=== PATIENT | female | born 1925 | race Caucasian/White ===

== ENCOUNTER → 2016-03-05 | Outpatient (REF) | payer MEDICARE ==
[~2016-03-05] MED LIST: ALVI12CA PO; BISO5TAB5 PO; COLA100C PO; DIGI1TAB PO; FERR325T PO; FURO40TA2 PO; GLUCTAB6 PO; LISI-542 PO; MAPA325T2 PO; METF500T PO; NORCOTAB PO; NYST10PW TOP; PANT40TA2 PO; POTA10CA PO; VITMTA PO; WARF-23 PO
[2016-03-05 20:08] LABS: ALBUMIN 3.4 GM/DL (3.2-5.2); ALBUMIN/GLOBULIN RATIO 1.1 (1.00-1.93); BILIRUBIN,TOTAL 1.2 MG/DL (0.2-1.0); CALCIUM LEVEL 8.5 MG/DL (8.8-10.2); CREATININE FOR GFR 2.1 MG/DL (0.55-1.02); DIGOXIN LEVEL 1.9 NG/ML (0.5-2.0); GLOMERULAR FILTRATION RATE 23.6 (>32); MAGNESIUM LEVEL 1.9 MG/DL (1.8-2.4); POTASSIUM SERUM 5.1 MEQ/L (3.5-5.1); TOTAL PROTEIN 6.5 GM/DL (6.4-8.2)
== END ==
LOC: M SFHCADAM 14:30
PROVIDERS: ATTEND Physician Assistant
DX: E86.0 Dehydration (principal); I48.91 Unspecified atrial fibrillation

== ENCOUNTER 2016-03-10 08:58 | Inpatient (IN) | payer MEDICARE ==
[~2016-03-10] VITALS: Ht 152.4 cm; Wt 72.8 kg
[2016-03-10] MEDS ORDERED: FERROUS SULFATE 325MG TAB PO SCH (09:00)
[2016-03-10 11:15] VITALS: BP 131/60
[2016-03-10 11:59] LABS: INR 4.13
[2016-03-10 12:22] LABS: ALBUMIN 3.5 GM/DL (3.2-5.2); ALBUMIN/GLOBULIN RATIO 1.03 (1.00-1.93); CALCIUM LEVEL 8.4 MG/DL (8.8-10.2); CREATININE FOR GFR 1.84 MG/DL (0.55-1.02); GLOMERULAR FILTRATION RATE 27.5 (>32); MAGNESIUM LEVEL 2.2 MG/DL (1.8-2.4); TOTAL PROTEIN 6.9 GM/DL (6.4-8.2)
[2016-03-10 12:24] LABS: POTASSIUM SERUM 5.2 MEQ/L (3.5-5.1)
[2016-03-10 12:25] LABS: MEAN CORPUSCULAR HEMOGLOBIN 31.5 pg (27.0-33.0); MEAN CORPUSCULAR HGB CONC 31.3 g/dl (32.0-36.5); MEAN CORPUSCULAR VOLUME 100.6 fl (80.0-96.0); RED CELL DISTRIBUTION WIDTH 14.4 % (11.5-14.5); WHITE BLOOD COUNT 6.2 K/mm3 (4.0-10.0)
[2016-03-10 12:30] LABS: DIGOXIN LEVEL 1.8 NG/ML (0.5-2.0)
[2016-03-10] MEDS ORDERED: WARF-60 PO (12:37)
[2016-03-10] MEDS ORDERED: FURO40TA2 PO (12:37)
[2016-03-10] MEDS ORDERED: WARF-20 PO (12:37)
[2016-03-10] MEDS ORDERED: DIGO0.12 PO (12:37)
[2016-03-10] MEDS ORDERED: ACET-654 PO (12:37)
[2016-03-10] MEDS ORDERED: VITMTA PO (12:38)
--- NOTE | 2016-03-10 14:31 | IPNPDOC ---
Assessment/Plan Date Seen The patient was seen on 03/10/16. Patient Summary Patient admitted directly from the [facility] for shortness of breath with exertion, AK I, and concern for heart failure Problems Problems: (1) A-fib Status: Chronic Problem Text: Patient is currently treated with digoxin and bisoprolol. She is possibly overly late rate controlled at this point, as her pulse is below 60. This may be part of her problem. Digoxin level drawn 3 days ago was 1.9. -Hold beta jerod -Continue digoxin -Awaiting cardiology recommendations (2) Acute kidney failure Status: Chronic Problem Specific Plan: Repeat Labs Problem Text: Baseline creatinine is 1.2. Stage IIIB CK D. Creatinine is currently 1.84. Appears to be prerenal given recent nausea, vomiting, diarrhea. BNP is 2000, however patient does not appear to be volume overloaded on exam, and has no rales on lung exam. Patient has minimal urine output, and has not urinated all day. -Urine sodium, urine creatinine (3) Anemia Status: Chronic Problem Text: Chronic iron deficiency anemia, likely contributing to acute heart failure. - Consider iron infusion, ferrous sucrate 500 mg - Consider PRBC, as her anemia may be contributing to heart failure (4) Diastolic CHF Status: Chronic Response to Treatment: Worse Problem Specific Plan: Consult Specialist Problem Text: Echocardiogram done by Dr. Maldonado 08/09/2015 showed normal left ventricular systolic function, severe biatrial enlargement, aortic sclerosis without stenosis and mild insufficiency, high CVP, and moderate pulmonary hypertension. This was done during admission for sepsis and acute congestive heart failure. Her current labs show BNP of approximately 2000, although this is not consistent with her overall exam. Patient does not appear to be volume overloaded on exam, and does not have appreciable jugular venous distention. Given that the patient is stable currently, I'm not inclined to start any Lasix. I will wait recommendations by Dr. Ewing. -Follow-up echo -Awaiting cardiology recommendations -Stop beta jerod -Consider iron infusion (5) HTN (hypertension) Status: Acute Problem Text: Blood pressures currently in the 130s. Holding beta jerod (6) Valvular heart disease Status: Acute (7) Pulmonary HTN Status: Acute Problem Text: Secondary to valvular heart disease (8) DM2 (diabetes mellitus, type 2) Status: Chronic Problem Text: Last A1c 8.4. Not currently on medications. -Sliding scale insulin (9) CKD (chronic kidney disease), stage III Status: Chronic Problem Text: Baseline stage IIIb CKD, with creatinine 1.2 Plan / VTE VTE Prophylaxis Ordered?: Yes (INR currently supratherapeutic, holding coumadin ) Subjective Review of Systems CC/HPI The patient is a 89-year-old female admitted with a reason for visit of Acute Renal Failure, Congestive Heart Failure. Events since last encounter Called to evaluate patient, who was strictly admitted from clinic. Patient reports that her symptoms have worsened over the past week. She had some nausea , vomiting, and diarrhea, which has now resolved. However, she continues to have significant dyspnea on exertion. She denies any new cough, fever, chills, sweats, or worsening lower extremity edema. Her only medication changes have been holding of her home Lasix. She reports normal urine output, and normal urine color. She denies any chest pain, chest pressure, racing heart, or palpitations. She denies any dark stools, or melenic stool. Constitutional: Reports: Fatigue, Denies: Chills, Fever, Malaise Skin: Denies: Lesions, Rash Pulmonary: Reports: Dyspnea, Denies: Cough, Pleuritic Chest Pain Cardiovascular: Denies: Chest Pain, Orthopnea, Palpitations Gastrointestinal: Denies: Abdominal Pain, Constipation, Diarrhea, Nausea, Vomiting Genitourinary: Denies: Dysuria Hematologic: Denies: Bleeding Excessively, Bruising Neurological: Denies: Change in speech, Confusion, Numbness, Weakness Psych: Reports: Mood Normal Other systems 10 point review systems is otherwise negative Objective Vital Signs/I&O Vital Signs Date Time Temp Pulse Resp B/P Pulse Ox O2 Delivery O2 Flow Rate FiO2 03/10/16 12:00 Room Air 03/10/16 11:15 97.8 58 18 131/60 99 Laboratory Data Labs 24H Laboratory Tests 2 03/10/16 11:31: Blood Urea Nitrogen 51H, Creatinine 1.84H, Sodium Level 139, Potassium Level 5.2H, Chloride Level 106, Carbon Dioxide Level 23, Calcium Level 8.4L, Aspartate Amino Transf (AST/SGOT) 51H, Alanine Aminotransferase (ALT/SGPT) 36, Total Creatine Kinase 43, Alkaline Phosphatase 98, Total Bilirubin 1.0, Total Protein 6.9, Albumin 3.5, Albumin/Globulin Ratio 1.03, Anion Gap 10, Creatine Kinase MB 2.9, Creatine Kinase MB Relative Index 6.74H, Digoxin Level 1.8, Glomerular Filtration Rate 27.5L, Magnesium Level 2.2, Prothromb Time International Ratio 4.13, Prothrombin Time 39.9H, Troponin I 0.03 03/10/16 11:55: B-Type Natriuretic Peptide 2060H CBC/BMP Laboratory Tests 03/10/16 11:31 Calcium Level 8.4 L, Aspartate Amino Transf (AST/SGOT) 51 H, Alanine Aminotransferase (ALT/SGPT) 36, Total Creatine Kinase 43, Alkaline Phosphatase 98, Total Bilirubin 1.0, Total Protein 6.9, Albumin 3.5, Red Blood Count 3.39 L , Mean Corpuscular Volume 100.6 H, Mean Corpuscular Hemoglobin 31.5, Mean Corpuscular Hemoglobin Concent 31.3 L, Red Cell Distribution Width 14.4 Microbiology Microbiology 03/10/16 MRSA Screen, Received Pending TRACEY MCPHERSON MD Mar 10, 2016 14:31
[2016-03-10] MEDS ORDERED: SLF 3 ML SYR IV PRN (15:00)
--- NOTE | 2016-03-10 15:09 | REP ---
CHEST X-RAY: Two views. HISTORY: Dyspnea on exertion. COMPARISON: Chest x-ray September 08, 2015. FINDINGS: Moderate to marked cardiomegaly is again observed unchanged. There is slight blunting of the posterior pleural angles bilaterally. Some fissural thickening is seen. Pulmonary vasculature is cephalized. There are one or two Ramesh B lines in the bases. The aorta is calcific and tortuous. No infiltrate is seen. IMPRESSION: CHF pattern as above. Signed by Malcolm Thomason MD 03/10/2016 08:13 P
[2016-03-10 16:00] VITALS: BP 109/59
[2016-03-10 18:34] LABS: CREATININE FOR GFR 1.78 MG/DL (0.55-1.02); GLOMERULAR FILTRATION RATE 28.6 (>32)
[2016-03-10 20:00] VITALS: BP 125/58
[2016-03-10] MEDS ORDERED: PHYTONADIONE 2.5 MG **1/2 TAB PO ONE (20:30)
[2016-03-10] MEDS: BISOPROLOL FUM 2.5 MG PER 1/2TAB PO SCH (20:42)
[2016-03-10] MEDS: DOCUSATE SODIUM 100 MG CAP PO SCH (20:55)
[2016-03-10] MEDS: SLF 3 ML SYR IV SCH (20:56)
[2016-03-10] MEDS ORDERED: DIGOXIN 0.125 MG TAB PO SCH (21:00)
[2016-03-10] MEDS: ACETAMINOPHEN 325 MG TAB PO PRN (22:18)
[2016-03-11] VITALS (13 sets, daily range): BP systolic 103–128; BP diastolic 54–81
[2016-03-11 05:06] LABS: BASO % 0.7 % (0.0-1.0); EOS # 0.1 K/mm3 (0.0-0.50); EOS % 2.4 % (0.0-3.0); LARGE UNSTAINED CELL # 0.1 K/mm3 (0.0-0.4); LARGE UNSTAINED CELL % 2.3 % (0.0-4.0); LYMPH # 0.9 K/mm3 (1.5-4.5); LYMPH % 15.2 % (24.0-44.0); MEAN CORPUSCULAR HEMOGLOBIN 32.2 pg (27.0-33.0); MEAN CORPUSCULAR HGB CONC 32.8 g/dl (32.0-36.5); MEAN CORPUSCULAR VOLUME 98.2 fl (80.0-96.0); MONO # 0.4 K/mm3 (0.0-0.8); MONO % 7.4 % (0.0-5.0); NEUTROPHILS # 4.1 K/mm3 (1.8-7.7); NEUTROPHILS % 72.1 % (36.0-66.0); PLATELET COUNT, AUTOMATED 209 k/mm3 (150-450); RED CELL DISTRIBUTION WIDTH 13.8 % (11.5-14.5); WHITE BLOOD COUNT 5.7 K/mm3 (4.0-10.0)
[2016-03-11 05:28] LABS: INR 3.61
[2016-03-11 05:38] LABS: CALCIUM LEVEL 8.6 MG/DL (8.8-10.2); CREATININE FOR GFR 1.89 MG/DL (0.55-1.02); GLOMERULAR FILTRATION RATE 26.7 (>32); POTASSIUM SERUM 4.7 MEQ/L (3.5-5.1)
[2016-03-11 05:48] LABS: DIGOXIN LEVEL 1.6 NG/ML (0.5-2.0)
[2016-03-11] MEDS: SLF 3 ML SYR IV SCH ×3 (06:00→22:49)
[2016-03-11] MEDS ORDERED: ceFAZolin SOD 1 GM in D5W MINI-BAG PLUS 50 ML IV SCH (06:00)
[2016-03-11] MEDS ORDERED: FUROSEMIDE 40 MG/4 ML VIAL (J1940) IV SCH (08:00)
[2016-03-11] MEDS ORDERED: PHYTONADIONE 10MG/ML INJECTION (J3430) IV ONE (08:15)
[2016-03-11] MEDS ORDERED: FUROSEMIDE 40 MG/4 ML VIAL (J1940) IV ONE (08:15)
--- NOTE | 2016-03-11 08:26 | CR ---
DATE OF CONSULTATION: 03/10/2016 REFERRING PROVIDER: Meri Reyes PA-C/Dr. Nick Boo REASON FOR CONSULTATION: Shortness of breath. HISTORY OF PRESENT ILLNESS: 89-year-old woman well known by the office and she has been doing fairly well until most recently when she started having generalized weakness associated with nausea, vomiting and diarrhea. She was seen by her primary on 03/05/2015 and at that time her serum creatinine was reported to be 2.1 with a BUN of 50 and a serum potassium of 5.1. Her furosemide was stopped. She was seen early this morning by her primary at the [facility] and she was complaining of weakness and shortness of breath, but no chest pain. She was admitted directly for further management and monitoring, and a cardiology consult was called. Serum digoxin on 03/05/2016 was 1.9. When I saw Mrs. Alesha Haque in the unit, she was lying supine in bed in no acute distress at rest. She complains of shortness of breath and rapid heart rate with minimal exertion, but denies any chest pain. She denies any active bleeding. She has no pedal edema and she denies any orthopnea or paroxysmal nocturnal dyspnea (PND). She denies any cough. She is no longer having diarrhea. There is no focal manifestation. There is no acute swelling or redness of the joints. She has minimal pedal edema and this has been chronic. While in the unit, her telemetry revealed marked bradycardia with a heart rate at times about 40 beats per minute. This morning, she had an EKG prior to her admission that revealed atrial fibrillation at 59 beats per minute and left ventricular conduction delay as well as STT abnormalities noted in the inferior leads as well as the anterolateral leads. She has a past medical history positive for atrial fibrillation that has been chronic and persistent and for which she has been on Coumadin and she is being monitored by her primary, hypertension, hyperlipidemia, diabetes mellitus, deep vein thrombosis (DVT) after right knee surgery, valvular heart disease involving the aortic valve as well as the mitral valve, moderately severe pulmonary hypertension, but normal left ventricular ejection fraction (LVEF). There is no history of cerebrovascular accident (CVA), obstructive coronary artery disease, myocardial infarction, cardiomyopathy, sudden cardiac . She also has a history of anemia. Past surgical history is positive for breast surgery, left lumpectomy in 1997 for breast cancer and she was treated also with radiotherapy. She also has a history of total hysterectomy, bilateral cataract extraction, right knee replacement, and last August she had a polypectomy done at [facility]. History of transverse colectomy for adenocarcinoma of the colon, nonmetastatic in August 2015. MEDICATIONS PRIOR TO COMING TO HOSPITAL: - bisoprolol 2.5 mg by mouth daily - digoxin 0.125 mg daily - Coumadin as directed - Lasix 40 mg by mouth daily - pantoprazole 40 mg by mouth daily - KCL 10 mEq by mouth daily - docusate sodium 100 mg tablets one to two tablets as needed for constipation - iron supplement 325 mg by mouth daily CURRENT MEDICATIONS: - pantoprazole 40 mg by mouth daily - ferrous sulfate 325 mg by mouth daily - docusate sodium 100 mg by mouth twice a day - bisoprolol fumarate 2.5 mg by mouth twice a day - digoxin 0.125 mg by mouth daily - Tylenol 650 mg every 4 hours as needed for pain or fever FAMILY HISTORY: Noncontributory. SOCIAL HISTORY: Patient lives in the [facility]. There is no report of smoking or EtOH abuse. ALLERGIES: She has no known drug allergies. ADVANCE DIRECTIVE: Unclear at this present time. PHYSICAL EXAMINATION: Patient is alert and oriented, in no acute distress at rest and very pleasant. Her last vital signs today reveal a blood pressure of 125/58 with a pulse of 51, respirations 18, and her maximum temperature is 97.8 degrees Fahrenheit with an oxygen saturation of 98% on room air. HEAD/EARS/EYES/NOSE/THROAT: Atraumatic. NECK: Supple with minimally extended jugular. LUNGS: Reveal minimal crackles at the bases. No wheezing. HEART: Examination reveals irregularly, irregular heart sounds without gallops. The PMI is not displaced. There is no rub. There is a systolic murmur grade 1-2/6 at the lower left sternal border and at the apex with some minimal radiation to the axilla. ABDOMEN: Unremarkable. EXTREMITIES: Reveal trace ankle edema. NEUROLOGICAL: Examination grossly is negative for focal deficits. LABORATORIES: CBC revealed a WBC of 6.2, hemoglobin 10.7, hematocrit 34.1, and platelets 215,000. BMP revealed a sodium of 139, potassium 5.2, chloride 106, CO2 23, BUN 51, creatinine 1.84, GFR 27.5, fasting glucose 157, calcium 8.4. Her magnesium is 2.1. Liver enzymes revealed a total bilirubin of 1.0, AST 51, ALT 36, alkaline phosphatase is 98, total bilirubin 6.9, albumin 3.6. Serum BNP was 2060. Serum Troponin I was 0.03 times two. Serum digoxin is 1.8. PT was 39.9 with an INR of 4.13. Chest x-ray revealed a tortuous aorta, mild cardiomegaly and increased vascular markings. EKG done prior to coming to the hospital revealed atrial fibrillation at 69 beats per minute and STT abnormalities noted in the inferior leads as well as the anterolateral leads and right ventricular conduction delay. Telemetry was reviewed and revealed heart rate as low as 40 beats per minute intermittently. IMPRESSION: 1. Probably sick sinus syndrome in this 89-year-old woman with complaint of palpitations with activities and while in the hospital at rest, her heart rate drops as well as about 40 beats per minute at times. She is asymptomatic at rest. She will need the AV blocking agents and for this reason, she will require a permanent pacemaker implantation and this was discussed with Dr. Lynn who will see her tomorrow. In the meantime, she was given a small dose of vitamin K and will repeat the INR in the morning, 03/11/2016. The digoxin was discontinued. She has parameters for the beta-blockers as well as bisoprolol and will continue the same. INR as mentioned above is supratherapeutic and the Coumadin is on hold. This was discussed with the patient and she has agreed to proceed if needed. I will discuss in the morning with her primary and admitting provider. 2. Congestive heart failure (CHF), mild, and probably related to left ventricular diastolic dysfunction. Last year she had an echocardiogram that revealed a normal global left ventricular systolic function as well as in 2014, but with moderate valvular heart disease. She will be monitored. This will most likely improve once her heart rate is under control after her pacemaker implantation. We will be able to readjust her medications. 3. Abnormal EKG. This seems to be new when compared to the last EKG done in the office in 2013, but her serum Troponin is negative. She will be monitored. In 2012 she had a nuclear stress test and it was negative for ischemia or infarction. 4. History of hypertension, under control with current medication, on bisoprolol. 5. History of hyperlipidemia, on diet. 6. Diabetes mellitus, also on diet. 7. Chronic kidney disease. She is being monitored. Her serum creatinine last year was about 1.2. 8. Acute kidney injury. She will be monitored off the furosemide. 9. She has mild hyperkalemia and she is no longer on the potassium supplement. It was a pleasure to participate in the care of Mrs. Alesha Haque for her underlying cardiac condition. I will continue to monitor her along with you while in the hospital. At the present time, she appears to be stable. Tomorrow, Dr. Maldonado will be seeing her. Please do not hesitate to call if you have any questions.
--- NOTE | 2016-03-11 08:45 | ECGEPIP ---
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
[2016-03-11] MEDS: DOCUSATE SODIUM 100 MG CAP PO SCH ×2 (09:00→21:49)
[2016-03-11] MEDS: FERROUS SULFATE 325MG TAB PO SCH (09:00)
[2016-03-11] MEDS: BISOPROLOL FUM 2.5 MG PER 1/2TAB PO SCH ×2 (09:00→21:49)
[2016-03-11] MEDS: PANTOPRAZOLE 40MG TAB (PROTONIX) PO SCH (09:00)
--- NOTE | 2016-03-11 10:26 | IPNPDOC ---
[facility] Cardiology Progress Note Date of Service/Time The patient was seen on 03/11/16 at 10:19. Cardiology Progress Note SUBJECTIVE: Ms Haque was seen and examined at bedside, patient seemed comfortable was sitting upright in bed with her legs off to the side, she seems to be doing well and was in no apparent distress. OBJECTIVE: PHYSICAL EXAMINATION: VITAL SIGNS: Please see below. GENERAL APPEARANCE: Well-appearing female, conversant, pleasant and in no distress. HEENT: NCAT, EOMI, moist mucous membranes, nares patent bilaterally LUNGS: Good air expansion bilaterally, somewhat diminished breath sounds throughout, otherwise no rales, rhonchi or wheeze appreciated HEART: Normal S1, S2 no murmurs, rubs or gallops appreciated, rate was in the 80s ABDOMEN: Soft, nondistended, nontender SKIN: Intact EXTREMITIES: No clubbing, cyanosis or edema appreciated NEUROLOGICAL: No focal deficits PSYCHIATRIC: Affect is appropriate LABORATORY WORK: Please see below. ASSESSMENT AND PLAN: Ms. Haque seemed to be doing reasonably well this morning, she is scheduled for pacemaker implantation today. Her heart rate has been stable in the 60s to 70s with blood pressure 110 to 220 systolic over 60 diastolic. We will hold off on further medicine adjustment changes unless her clinical condition should change prior to pacemaker insertion. No further recommendations at this time. Vital Signs/I&O VS/I&O Vital Signs Date Time Temp Pulse Resp B/P Pulse Ox O2 Delivery O2 Flow Rate FiO2 03/11/16 10:09 97.0 65 18 112/57 96 03/11/16 08:00 Room Air I&O- Last 24 Hours up to 6 AM 03/11/16 06:00 Intake Total 560 ml Output Total 800 ml Balance -240 ml Laboratory Data 24H LABS Laboratory Tests 2 03/10/16 11:31: Blood Urea Nitrogen 51H, Creatinine 1.84H, Sodium Level 139, Potassium Level 5.2H, Chloride Level 106, Carbon Dioxide Level 23, Calcium Level 8.4L, Aspartate Amino Transf (AST/SGOT) 51H, Alanine Aminotransferase (ALT/SGPT) 36, Total Creatine Kinase 43, Alkaline Phosphatase 98, Total Bilirubin 1.0, Total Protein 6.9, Albumin 3.5, Albumin/Globulin Ratio 1.03, Anion Gap 10, Creatine Kinase MB 2.9, Creatine Kinase MB Relative Index 6.74H, Digoxin Level 1.8, Glomerular Filtration Rate 27.5L, Magnesium Level 2.2, Prothromb Time International Ratio 4.13, Prothrombin Time 39.9H, Troponin I 0.03 03/10/16 11:55: B-Type Natriuretic Peptide 2060H 03/10/16 17:19: Glomerular Filtration Rate 28.6L, Troponin I 0.03 03/10/16 19:44: Urine Random Creatinine 96.6, Urine Random Sodium 22 03/10/16 23:32: Troponin I 0.05# 03/11/16 04:57: Troponin I 0.04, Anion Gap 8, White Blood Count 5.7, Red Blood Count 3.39L, Hemoglobin 10.9L, Hematocrit 33.3L, Mean Corpuscular Volume 98.2H, Mean Corpuscular Hemoglobin 32.2, Mean Corpuscular Hemoglobin Concent 32.8, Red Cell Distribution Width 13.8, Platelet Count 209, Neutrophils (%) (Auto) 72.1H, Lymphocytes (%) (Auto) 15.2L, Monocytes (%) (Auto) 7.4H, Eosinophils (%) (Auto) 2.4, Basophils (%) (Auto) 0.7, Neutrophils # (Auto) 4.1, Lymphocytes # (Auto) 0.9L, Monocytes # (Auto) 0.4, Eosinophils # (Auto) 0.1, Basophils # (Auto) 0.0, Blood Urea Nitrogen 52H, Creatinine 1.89H, Sodium Level 140, Potassium Level 4.7 , Chloride Level 108H, Carbon Dioxide Level 24, Calcium Level 8.6L, Digoxin Level 1.6, Glomerular Filtration Rate 26.7L, Large Unclassified Cells # 0.1, Large Unclassified Cells % 2.3, Prothromb Time International Ratio 3.61, Prothrombin Time 36.0H CBC/BMP Laboratory Tests 03/10/16 11:31 Calcium Level 8.4 L, Aspartate Amino Transf (AST/SGOT) 51 H, Alanine Aminotransferase (ALT/SGPT) 36, Total Creatine Kinase 43, Alkaline Phosphatase 98, Total Bilirubin 1.0, Total Protein 6.9, Albumin 3.5, Red Blood Count 3.39 L , Mean Corpuscular Volume 100.6 H, Mean Corpuscular Hemoglobin 31.5, Mean Corpuscular Hemoglobin Concent 31.3 L, Red Cell Distribution Width 14.4 1/18/17 17:19 03/11/16 04:57 Calcium Level 8.6 L, Red Blood Count 3.39 L, Mean Corpuscular Volume 98.2 H, Mean Corpuscular Hemoglobin 32.2, Mean Corpuscular Hemoglobin Concent 32.8, Red Cell Distribution Width 13.8, Neutrophils (%) (Auto) 72.1 H, Lymphocytes (%) ( Auto) 15.2 L, Monocytes (%) (Auto) 7.4 H, Eosinophils (%) (Auto) 2.4, Basophils (%) (Auto) 0.7, Neutrophils # (Auto) 4.1, Lymphocytes # (Auto) 0.9 L, Monocytes # (Auto) 0.4, Eosinophils # (Auto) 0.1, Basophils # (Auto) 0.0 Microbiology Microbiology 03/10/16 MRSA Screen, Received Pending GME ATTESTATION GME ATTESTATION My preceptor for this patient encounter was physically present in the building during the encounter and was fully available. As needed, all aspects of the patient interview, examination, medical decision making process, and medical care plan development were reviewed and approved by the preceptor. Preceptor is aware and concurs with the plan as stated in the body of this note and will attest to such by his/her cosignature. JASPREET LINDER DO Mar 11, 2016 10:26 Princess Maldonado MD Mar 13, 2016 11:12
--- NOTE | 2016-03-11 11:14 | IPNPDOC ---
Assessment/Plan Date Seen The patient was seen on 03/11/16. Problems Problems: (1) A-fib Status: Chronic Problem Text: Patient is currently treated with digoxin and bisoprolol. She is possibly overly late rate controlled at this point, as her pulse is below 60. This may be part of her problem. Digoxin level drawn 3 days ago was 1.9. -Hold beta jerod -Continue digoxin -Awaiting cardiology recommendations (2) Acute kidney failure Status: Acute Problem Specific Plan: Repeat Labs Problem Text: Baseline creatinine is 1.2. Stage IIIB CK D. Creatinine is currently 1.84. Appears to be prerenal given recent nausea, vomiting, diarrhea. BNP is 2000, however patient does not appear to be volume overloaded on exam, and has no rales on lung exam. Patient has minimal urine output, and has not urinated all day. -Urine sodium, urine creatinine (3) Anemia Status: Chronic Problem Text: Chronic iron deficiency anemia, likely contributing to acute heart failure. - Consider iron infusion, ferrous sucrate 500 mg - Consider PRBC, as her anemia may be contributing to heart failure (4) Diastolic CHF Status: Chronic Response to Treatment: Improving Problem Specific Plan: Consult Specialist Problem Text: Echocardiogram done by Dr. Maldonado 08/09/2015 showed normal left ventricular systolic function, severe biatrial enlargement, aortic sclerosis without stenosis and mild insufficiency, high CVP, and moderate pulmonary hypertension. This was done during admission for sepsis and acute congestive heart failure. Her current labs show BNP of approximately 2000, although this is not consistent with her overall exam. Patient does not appear to be volume overloaded on exam, and does not have appreciable jugular venous distention. Given that the patient is stable currently, I'm not inclined to start any Lasix. I will wait recommendations by Dr. Ewing. -Follow-up echo -Awaiting cardiology recommendations -Stop beta jerod -Consider iron infusion (5) HTN (hypertension) Status: Acute Problem Text: Blood pressures currently in the 130s. Holding beta jerod (6) Valvular heart disease Status: Acute (7) Pulmonary HTN Status: Acute Problem Text: Secondary to valvular heart disease (8) DM2 (diabetes mellitus, type 2) Status: Chronic Problem Text: Last A1c 8.4. Not currently on medications. -Sliding scale insulin (9) CKD (chronic kidney disease), stage III Status: Chronic Problem Text: Baseline stage IIIb CKD, with creatinine 1.2 Plan / VTE VTE Prophylaxis Ordered?: Yes (INR currently supratherapeutic, holding coumadin ) Subjective Review of Systems CC/HPI The patient is a 89-year-old female admitted with a reason for visit of Acute Renal Failure, Congestive Heart Failure. Events since last encounter Planned pacemaker today due to bradycardia. Dig toxicity. Constitutional: Denies: Chills, Fever ENT: Denies: Dysphagia, Ear Pain, Head Aches Skin: Denies: Breakdown, Lesions, Rash Pulmonary: Denies: Cough, Dyspnea Gastrointestinal: Denies: Abdominal Pain, Diarrhea, Nausea, Vomiting Psych: Reports: Mood Normal, Denies: Depression, Memory Issues Objective Physical Examination General Exam: Positive: Alert, No Acute Distress Eye Exam: Positive: Conjunctiva & lids normal, EOMI, PERRLA, Negative: Sclera icteric Neck Exam: Positive: Supple, Negative: JVD, thyromegaly Chest Exam: Positive: Clear to auscultation, Normal air movement Abdomen Exam: Positive: Normal bowel sounds, Soft, Negative: Hepatospenomegaly, Tenderness Extremity Exam: Positive: Edema (1+ RLE trace pretibial LLE) Skin Exam: Positive: Nl turgor and temperature, Negative: Breakdown, Rash Vital Signs/I&O Vital Signs Date Time Temp Pulse Resp B/P Pulse Ox O2 Delivery O2 Flow Rate FiO2 03/11/16 10:20 97.0 65 18 123/57 95 Room Air I&O- Last 24 Hours up to 6 AM 03/11/16 06:00 Intake Total 560 ml Output Total 800 ml Balance -240 ml Laboratory Data Labs 24H Laboratory Tests 2 03/10/16 11:31: Blood Urea Nitrogen 51H, Creatinine 1.84H, Sodium Level 139, Potassium Level 5.2H, Chloride Level 106, Carbon Dioxide Level 23, Calcium Level 8.4L, Aspartate Amino Transf (AST/SGOT) 51H, Alanine Aminotransferase (ALT/SGPT) 36, Total Creatine Kinase 43, Alkaline Phosphatase 98, Total Bilirubin 1.0, Total Protein 6.9, Albumin 3.5, Albumin/Globulin Ratio 1.03, Anion Gap 10, Creatine Kinase MB 2.9, Creatine Kinase MB Relative Index 6.74H, Digoxin Level 1.8, Glomerular Filtration Rate 27.5L, Magnesium Level 2.2, Prothromb Time International Ratio 4.13, Prothrombin Time 39.9H, Troponin I 0.03 03/10/16 11:55: B-Type Natriuretic Peptide 2060H 03/10/16 17:19: Glomerular Filtration Rate 28.6L, Troponin I 0.03 03/10/16 19:44: Urine Random Creatinine 96.6, Urine Random Sodium 22 03/10/16 23:32: Troponin I 0.05# 03/11/16 04:57: Troponin I 0.04, Anion Gap 8, White Blood Count 5.7, Red Blood Count 3.39L, Hemoglobin 10.9L, Hematocrit 33.3L, Mean Corpuscular Volume 98.2H, Mean Corpuscular Hemoglobin 32.2, Mean Corpuscular Hemoglobin Concent 32.8, Red Cell Distribution Width 13.8, Platelet Count 209, Neutrophils (%) (Auto) 72.1H, Lymphocytes (%) (Auto) 15.2L, Monocytes (%) (Auto) 7.4H, Eosinophils (%) (Auto) 2.4, Basophils (%) (Auto) 0.7, Neutrophils # (Auto) 4.1, Lymphocytes # (Auto) 0.9L, Monocytes # (Auto) 0.4, Eosinophils # (Auto) 0.1, Basophils # (Auto) 0.0, Blood Urea Nitrogen 52H, Creatinine 1.89H, Sodium Level 140, Potassium Level 4.7 , Chloride Level 108H, Carbon Dioxide Level 24, Calcium Level 8.6L, Digoxin Level 1.6, Glomerular Filtration Rate 26.7L, Large Unclassified Cells # 0.1, Large Unclassified Cells % 2.3, Prothromb Time International Ratio 3.61, Prothrombin Time 36.0H CBC/BMP Laboratory Tests 03/10/16 11:31 Calcium Level 8.4 L, Aspartate Amino Transf (AST/SGOT) 51 H, Alanine Aminotransferase (ALT/SGPT) 36, Total Creatine Kinase 43, Alkaline Phosphatase 98, Total Bilirubin 1.0, Total Protein 6.9, Albumin 3.5, Red Blood Count 3.39 L , Mean Corpuscular Volume 100.6 H, Mean Corpuscular Hemoglobin 31.5, Mean Corpuscular Hemoglobin Concent 31.3 L, Red Cell Distribution Width 14.4 03/10/16 17:19 1/19/17 04:57 Calcium Level 8.6 L, Red Blood Count 3.39 L, Mean Corpuscular Volume 98.2 H, Mean Corpuscular Hemoglobin 32.2, Mean Corpuscular Hemoglobin Concent 32.8, Red Cell Distribution Width 13.8, Neutrophils (%) (Auto) 72.1 H, Lymphocytes (%) ( Auto) 15.2 L, Monocytes (%) (Auto) 7.4 H, Eosinophils (%) (Auto) 2.4, Basophils (%) (Auto) 0.7, Neutrophils # (Auto) 4.1, Lymphocytes # (Auto) 0.9 L, Monocytes # (Auto) 0.4, Eosinophils # (Auto) 0.1, Basophils # (Auto) 0.0 Microbiology Microbiology 03/10/16 MRSA Screen, Received Pending Arlette Allen ELEMENTARY SCIENCE TEACHER Mar 11, 2016 11:13
[2016-03-11 12:23] LABS: INR 1.99
--- NOTE | 2016-03-11 13:36 | ECHO ---
DATE OF PROCEDURE: 03/11/2016 REFERRING PHYSICIAN: Dr. Nick Boo, Dr. Ewing. INDICATION: Dyspnea, atrial fibrillation, heart murmur. The patient height is 152 cm and weighs 69 kg. DIMENSIONS: IVS - 1.0 LV - 4.4 LVPW - 1.0 LA - 5.2 Aorta - 3.4 FINDINGS: The study is of excellent technical quality. Left ventricle is normal size and hyperdynamic function with estimated LVEF of 70 to 75%. Right ventricle appears dilated and hypokinetic. Both atria are severely enlarged. Aortic valve is tricuspid. It is heavily calcific but there is reasonable leaflet openings. Mitral valve exhibits prolapse of posterior mitral leaflet with flail segment protruding in systole into the left atrium. Tricuspid valve appears normal. Pulmonic valve appears normal. Trace pericardial effusion is noted. Inferior vena cava is massively dilated without appreciable collapse corresponding to severely elevated central venous pressure. Aortic root and aortic arch appears grossly normal. Doppler interrogation aortic valve reveals no significant stenosis and mild to moderate insufficiency. There is severe mitral insufficiency with torrential MR due to flail segment of posterior mitral leaflet. There is probably severe tricuspid insufficiency. Calculated pulmonary artery pressure is in high 70s to 80s corresponding to severe pulmonary hypertension. Mild pulmonic insufficiency is also seen. Doppler evaluation for diastolic function is inconclusive due to atrial fibrillation. CONCLUSIONS: 1. Study is of good technical quality. 2. Normal LV size with hyperdynamic LV systolic function. 3. Elevated central venous pressure. 4. Severe pulmonary hypertension. 5. Severe mitral and tricuspid insufficiency. 6. Mild to moderate aortic insufficiency. COMMENT: SBE prophylaxis is not recommended. Compared to echocardiogram report from July 2015, there has been new development of the flail segment of posterior mitral leaflet. Findings were discussed with . JOSE ROBERTO
[2016-03-11] MEDS ORDERED: LIDOCAINE 1% SDV INJ 30 ML VIAL As Ordered ONE (14:04)
[2016-03-11] MEDS ORDERED: ISOVUE-300 61% 50ML VIAL (Q9967) As Ordered ONE (14:04)
[2016-03-11] MEDS ORDERED: AMIODARONE 150MG/3ML INJ (J0282) As Ordered ONE (14:06)
[2016-03-11] MEDS ORDERED: fentaNYL 100 MCG/2 ML INJECTION (J3010) As Ordered ONE (15:13)
[2016-03-11] MEDS ORDERED: LIDOCAINE 2% INJ 100 MG/5 ML SDV (FOR ANES.) As Ordered ONE (15:14)
[2016-03-11] MEDS ORDERED: PROPOFOL 200 MG/20 ML VIAL As Ordered ONE (15:15)
[2016-03-11] MEDS ORDERED: LIDOCAINE 1% SDV INJ 30 ML VIAL XX ONE (16:41)
[2016-03-11] MEDS ORDERED: ONDANSETRON 4MG/2ML VIAL (J2405) As Ordered ONE (16:43)
[2016-03-11] MEDS ORDERED: LR 1,000 ML IV SCH (17:30)
--- NOTE | 2016-03-11 17:46 | REP ---
AP PORTABLE CHEST: 03/11/2016 at 05:10 PM. Clinical history: Post pacer insertion. Comparison: PA and lateral chest 03/10/2016. Skin latasha and a pacer unit over the left mid upper chest with a single lead terminating in the region of the right ventricle. I do not see evidence of pneumothorax or pleural effusion, however, there is cardiomegaly, left atrial and ventricular enlargement and superimposed interstitial and some alveolar pulmonary edema. Signed by Oswaldo Mix MD 03/11/2016 08:15 P
--- NOTE | 2016-03-11 18:17 | RO ---
DATE OF PROCEDURE: 03/11/2016 PREPROCEDURE DIAGNOSES: 1. Intermittent high grade atrioventricular (AV) block. 2. Chronic atrial fibrillation. POSTPROCEDURE DIAGNOSES: 1. Intermittent high grade atrioventricular (AV) block. 2. Chronic atrial fibrillation. OPERATIVE PROCEDURE: Implantation of single chamber permanent pacemaker. IMPLANTING BIOMEDICAL ENGINEER: Dr. Austin Lynn ANESTHESIOLOGIST: Dr. Charlton TYPE OF ANESTHESIA: Monitored local anesthesia. DESCRIPTION OF PROCEDURE: With the patient in the fasting state having her oral anticoagulation reversed with PT/INR 1.9 this morning, after she signed informed consent and received Ancef 2 grams IV premedication, she was taken to the operating theater. Numerous skin electrodes were applied to facilitate continuous electrocardiographic monitoring. The left subclavian region was prepped and draped in the usual fashion. The left subclavian vein was catheterized using the micropuncture technique. A 5-cm linear incision was made several centimeters below and parallel to the left clavicle. Dissection was carried down to the level of the pectoralis fascia and a pocket was fashioned below the level of the incision line. A single bipolar screw-in active fixation steroid eluting pacing lead was then advanced under fluoroscopic and electrocardiographic control to the right ventricular outflow tract. The ventricular lead ([employer] model #2088TC/58, serial #[id number]) measurements were: Stimulation threshold 0.6 V/0.4 ms/impedance 663 ohms. The R wave amplitude measured 4.8 mV. This lead was secured in position with sleeve suture at its insertion site. It was then connected to a single chamber pulse generator ([employer] [facility], model #GN0743, serial #[id number]) and appropriate VVI pacing was documented. We have purposely not programmed the rate response on at this point, hoping that she will have mostly her own spontaneous QRS complexes. The device was then placed in the pocket and secured in position with a suture through the upper right hand corner of the epoxy header. The subcutaneous tissues were approximated using a running chromic suture and the skin was closed using latasha. Dry dressing was applied. The patient was returned to recovery room in good condition. Estimated blood loss approximately 10 mL with no apparent complications. Portable upright chest x-ray and EKG are pending. Our plan is to monitor her overnight and give her an additional three doses of Ancef 1 gram IV every 8 hours. Her customary oral anticoagulation can be started back tomorrow morning. Hospital discharge will be left to Dr. Ewing and her primary physician. We will arrange for her to have a wound check and staple removal in our office in approximately 7-10 days time.
[2016-03-11] MEDS: ceFAZolin SOD 1 GM in D5W MINI-BAG PLUS 50 ML IV SCH (22:49)
[2016-03-12] VITALS: BP 119/75
[2016-03-12 04:00] VITALS: BP 121/66
[2016-03-12 05:09] LABS: MEAN CORPUSCULAR HEMOGLOBIN 32.9 pg (27.0-33.0); MEAN CORPUSCULAR HGB CONC 33.2 g/dl (32.0-36.5); WHITE BLOOD COUNT 6.2 K/mm3 (4.0-10.0)
[2016-03-12 05:17] LABS: INR 1.64
[2016-03-12 05:43] LABS: CALCIUM LEVEL 8.6 MG/DL (8.8-10.2); CREATININE FOR GFR 1.86 MG/DL (0.55-1.02); GLOMERULAR FILTRATION RATE 27.2 (>32); POTASSIUM SERUM 4.6 MEQ/L (3.5-5.1)
[2016-03-12 05:44] LABS: ALBUMIN 3.1 GM/DL (3.2-5.2); ALBUMIN/GLOBULIN RATIO 0.97 (1.00-1.93); BILIRUBIN,TOTAL 1.5 MG/DL (0.2-1.0); DIGOXIN LEVEL 1.4 NG/ML (0.5-2.0); TOTAL PROTEIN 6.3 GM/DL (6.4-8.2)
[2016-03-12] MEDS: SLF 3 ML SYR IV SCH ×3 (06:05→20:31)
[2016-03-12] MEDS: ceFAZolin SOD 1 GM in D5W MINI-BAG PLUS 50 ML IV SCH ×2 (06:07→14:10)
[2016-03-12 08:00] VITALS: BP 116/57
[2016-03-12] MEDS: PANTOPRAZOLE 40MG TAB (PROTONIX) PO SCH (08:30)
[2016-03-12] MEDS: DOCUSATE SODIUM 100 MG CAP PO SCH ×2 (08:30→20:31)
[2016-03-12] MEDS: FERROUS SULFATE 325MG TAB PO SCH (08:30)
[2016-03-12] MEDS: BISOPROLOL FUM 2.5 MG PER 1/2TAB PO SCH ×2 (08:31→20:31)
--- NOTE | 2016-03-12 09:10 | REP ---
PA LATERAL CHEST: 03/12/2016 CLINICAL HISTORY. Pacemaker followup, CHF. COMPARISON: Portable chest 03/11/2016, two-view chest 03/10/2016, 09/08/2015. FINDINGS: Victoria in the new pacer unit again seen over the left upper chest, single lead terminates in the right ventricle. There is no effusion or pneumothorax on that right side. There is cardiomegaly with left atrial and ventricular enlargement. Tortuous calcified aorta. There is less vascular congestion and improved interstitial and alveolar edema since last evenings examination. No other interval change or new findings. Small effusions. Signed by Oswaldo Mix MD 03/12/2016 09:16 A
--- NOTE | 2016-03-12 09:38 | IPNPDOC ---
Assessment/Plan Date Seen The patient was seen on 03/12/16. Problems Problems: (1) A-fib Status: Chronic Problem Text: S/p Pacemaker. On Zebeta bid. Resume Warfarin today. INR 1.6 (2) Acute kidney failure Status: Acute Problem Specific Plan: Repeat Labs Problem Text: Baseline creatinine is 1.2. Stage IIIB CK D. Creatinine is currently 1.84. Appears to be prerenal given recent nausea, vomiting, diarrhea. BNP is 2000, however patient does not appear to be volume overloaded on exam, and has no rales on lung exam. Patient has minimal urine output, and has not urinated all day. -Urine sodium, urine creatinine 03/12/2016: Cr. 1.86 (3) Anemia Status: Chronic Problem Text: s/p FFP tranfusion pre-pacemaker yesterday. H/H (4) Diastolic CHF Status: Chronic Response to Treatment: Improving Problem Specific Plan: Consult Specialist Problem Text: Echocardiogram done by Dr. Maldonado 08/09/2015 showed normal left ventricular systolic function, severe biatrial enlargement, aortic sclerosis without stenosis and mild insufficiency, high CVP, and moderate pulmonary hypertension. 03/12/2016: awaiting recommendations from cardiology for diuretic dosing if necessary. Appears well compensated on exam (5) HTN (hypertension) Status: Acute Problem Text: well controlled. ON Zebeta (6) Valvular heart disease Status: Acute (7) Pulmonary HTN Status: Acute Problem Text: Secondary to valvular heart disease (8) DM2 (diabetes mellitus, type 2) Status: Chronic Problem Text: Last A1c 8.4. Not currently on medications. -Sliding scale insulin (9) CKD (chronic kidney disease), stage III Status: Chronic Problem Text: Baseline stage IIIb CKD, with creatinine 1.2 Plan / VTE VTE Prophylaxis Ordered?: Yes (INR currently supratherapeutic, holding coumadin ) Plan Plan Text Attending note: I saw and evaluated the patient, and agree with the plan of care as discussed and documented. Nick Mcpherson MD Subjective Review of Systems CC/HPI The patient is a 89-year-old female admitted with a reason for visit of Acute Renal Failure, Congestive Heart Failure. Events since last encounter S/P pacemaker yesterday. Tolerated procedure well. see op notes. Denies c/o today. Received Amiodarone postoperatively. On Zebeta currently. Should resume Warfarin this evening. Constitutional: Denies: Chills, Fever, Malaise, Night Sweats, Weakness ENT: Denies: Dysphagia, Ear Pain, Head Aches Skin: Denies: Breakdown, Lesions, Rash Pulmonary: Denies: Cough, Dyspnea Cardiovascular: Denies: Chest Pain, Lt Headedness, Orthopnea, Palpitations, Paroxysmal Noc. Dyspnea Gastrointestinal: Denies: Abdominal Pain, Diarrhea, Nausea, Vomiting Musculoskeletal: Denies: Back Pain, Joint Pain, Muscle Pain, Neck Pain, Spasms Psych: Reports: Mood Normal, Denies: Depression, Memory Issues Objective Physical Examination General Exam: Positive: Alert, No Acute Distress Eye Exam: Positive: Conjunctiva & lids normal, EOMI, PERRLA, Negative: Sclera icteric Neck Exam: Positive: Supple, Negative: JVD, thyromegaly Chest Exam: Positive: Clear to auscultation, Normal air movement Abdomen Exam: Positive: Normal bowel sounds, Soft, Negative: Hepatospenomegaly, Tenderness Extremity Exam: Positive: Edema (1+ RLE trace pretibial LLE) Skin Exam: Positive: Nl turgor and temperature, Negative: Breakdown, Rash Vital Signs/I&O Vital Signs Date Time Temp Pulse Resp B/P Pulse Ox O2 Delivery O2 Flow Rate FiO2 03/12/16 08:31 62 116/57 03/12/16 08:00 98.3 18 94 Room Air 03/11/16 17:48 2.0 I&O- Last 24 Hours up to 6 AM 03/12/16 06:00 Intake Total 1485 ml Output Total 360 ml Balance 1125 ml Laboratory Data Labs 24H Laboratory Tests 2 03/11/16 12:06: Prothromb Time International Ratio 1.99, Prothrombin Time 22.7H 03/11/16 15:35: Bedside Glucose (Misc Panel) 119H 03/12/16 04:48: Prothromb Time International Ratio 1.64, Prothrombin Time 19.5H, Blood Urea Nitrogen 52H, Creatinine 1.86H, Sodium Level 142, Potassium Level 4.6, Chloride Level 109H, Carbon Dioxide Level 22, Calcium Level 8.6L, Aspartate Amino Transf (AST/SGOT) 351H, Alanine Aminotransferase (ALT/SGPT) 249H, Alkaline Phosphatase 90, Total Bilirubin 1.5H, Total Protein 6.3L, Albumin 3.1L, Albumin/Globulin Ratio 0.97L, Anion Gap 11, Digoxin Level 1.4, Glomerular Filtration Rate 27.2L CBC/BMP Laboratory Tests 03/12/16 04:48 Calcium Level 8.6 L, Aspartate Amino Transf (AST/SGOT) 351 H, Alanine Aminotransferase (ALT/SGPT) 249 H, Alkaline Phosphatase 90, Total Bilirubin 1.5 H, Total Protein 6.3 L, Albumin 3.1 L, Red Blood Count 3.47 L, Mean Corpuscular Volume 99.0 H, Mean Corpuscular Hemoglobin 32.9, Mean Corpuscular Hemoglobin Concent 33.2, Red Cell Distribution Width 14.0 FSBS Laboratory Tests Test 03/11/16 15:35 Range/Units Bedside Glucose (Misc Panel) 119 83-110 MG/DL Microbiology Microbiology 03/10/16 MRSA Screen - Final, Complete Arlette Allen ROUNDHOUSE FIRER/FIREMAN Mar 12, 2016 09:38 NICK MCPHERSON MD Mar 16, 2016 19:51
[2016-03-12 12:00] VITALS: BP 113/56
[2016-03-12 16:00] VITALS: BP 113/57
[2016-03-12] MEDS ORDERED: WARFARIN SOD 4 MG TAB PO ONE (17:00)
[2016-03-12 20:00] VITALS: BP 105/55
--- NOTE | 2016-03-12 21:03 | IPN ---
DATE: 03/12/2016 SUBJECTIVE: Mrs. Alesha Haque was seen initially on admission on 03/10/2016. She was admitted with decompensated congestive heart failure secondary to left ventricular diastolic dysfunction, sick sinus syndrome, acute kidney injury with baseline chronic kidney disease, and she has a history of hypertension, gastroesophageal reflux disease (GERD), and anemia. She has no prior history of coronary artery disease and she had a nuclear stress test done in the office a couple of years ago, and there was no ischemic or infarction. She was very symptomatic on admission, but with activities. She underwent an echocardiogram yesterday, 03/11/2016, that revealed severe mitral and tricuspid regurgitation with severe pulmonary hypertension and flail posterior mitral valve leaflet. She does have a history of mitral valve prolapse. For her sick sinus syndrome, she underwent a permanent pacemaker implantation by Dr. Austin Lynn yesterday, without any problems. Today, when I saw Mrs. Alesha Haque, she was supine in bed in no acute distress at rest, and she said she feels find and she is able to walk around without shortness of breath as she was having at home. There are no further palpitations, dizziness, syncope or near syncope. There is no bleeding and none noted at the surgical site. She was restarted on Coumadin starting today. She denies any cough or hemoptysis. She has no nausea, vomiting, diarrhea, melena, or hematemesis. She stated that her appetite has improved. She is well aware about the findings of the echocardiogram and understood them. She is not willing to proceed with any surgery. She did claim that if she was younger, she would have gone. OBJECTIVE: GENERAL/VITAL SIGNS: On physical examination, the patient is alert and oriented, in no acute distress at rest, and her last vital signs today reveal a blood pressure of 113/57 with a pulse of 68, respirations 18, and her maximum temperature is 97.5 degrees Fahrenheit with oxygen saturation of 96% on room air. She had a positive fluid balance of 665 mL for 03/11/2016. HEENT: Examination of the head, ears, eyes, nose and throat: Atraumatic. NECK: Supple with external jugular. LUNGS: Reveal minimal fine crackles at the bases. No wheezing. HEART: The heart examination revealed irregular heart sounds without gallops. The point of maximum impulse (PMI) is slightly displaced inferiorly. There is a systolic murmur grade 2-3 over 6 at the apex with some radiation to the axilla. ABDOMEN: Unremarkable. EXTREMITIES: Reveal trace ankle edema particularly noted in the left lower extremity. NEUROLOGIC: Negative for focal deficit. LABORATORY DATA: BMP done today revealed a sodium of 142, potassium 4.6, chloride 109, CO2 22, BUN 52, creatinine 1.86, and GFR 27. Fasting glucose 149, calcium 8.6. Liver enzymes revealed a total bilirubin of 1.5, AST 351, ALT 249, alkaline phosphatase 90. Total protein 6.3, albumin 3.1. Serum digoxin today is 1.4. PT today is 19.5 with an INR of 1.64. CBC done today revealed a WBC of 6.2, hemoglobin 11.4, hematocrit 34.3, and platelets 208,000. IMAGING: Chest x-ray done today revealed cardiomegaly with minimal bilateral pleural effusions and there is less vascular congestion when compared with initial EKG on admission. Telemetry revealed intermittent V-paced. IMPRESSION: 1. Sick sinus syndrome, symptomatic with underlying atrial fibrillation that has been chronic and persistent. The patient had permanent pacemaker implantation on 03/11/2016. 2. Status post decompensated congestive heart failure secondary to left ventricular diastolic dysfunction. 3. Flail mitral valve leaflet and severe mitral regurgitation. Normal left ventricular function (LVF). 4. Severe pulmonary hypertension and severe tricuspid regurgitation. 5. Acute kidney injury superimposed on chronic kidney disease stage IV. 6. Mild anemia. 7. Status post hyperkalemia. 8. Possible dig toxicity on admission. 9. Status post coagulopathy due to Coumadin. Mrs. Alesha Haque seems to be stable from a cardiac point of view and she is feeling much better and ambulating. Her diagnosis once again was discussed with her and she is well aware of that. Medications were reviewed and are continued the same, and she will be started on furosemide a small dose starting tomorrow, 03/13/2016. She is back on her Coumadin and we will monitor her international normalized ratio (INR). Goal is between 2.0 to 3.0. Her blood pressure seems to be under control. Her kidney function has been stable and slightly improved. Her hemoglobin and hematocrit also have been stable. We will increase ambulation over the weekend and if she remains stable, she can be discharged home for followup as outpatient. Dr. Rickey Varma is covering this weekend and please, if any questions, please to not hesitate to call him. Otherwise, if she is still there on Tuesday, she will be seen by Dr. Maldonado. We will stay away from the digoxin for now.
[2016-03-13] VITALS (7 sets, daily range): BP systolic 93–110; BP diastolic 55–58
[2016-03-13] MEDS: ACETAMINOPHEN 325 MG TAB PO PRN (03:08)
[2016-03-13 04:27] LABS: MEAN CORPUSCULAR HEMOGLOBIN 32.9 pg (27.0-33.0); MEAN CORPUSCULAR HGB CONC 33.1 g/dl (32.0-36.5); MEAN CORPUSCULAR VOLUME 99.5 fl (80.0-96.0); RED CELL DISTRIBUTION WIDTH 14.2 % (11.5-14.5); WHITE BLOOD COUNT 5.6 K/mm3 (4.0-10.0)
[2016-03-13 04:36] LABS: INR 1.67
[2016-03-13 04:55] LABS: ALBUMIN 2.7 GM/DL (3.2-5.2); ALBUMIN/GLOBULIN RATIO 0.96 (1.00-1.93); BILIRUBIN,TOTAL 0.7 MG/DL (0.2-1.0); CREATININE FOR GFR 1.79 MG/DL (0.55-1.02); GLOMERULAR FILTRATION RATE 28.4 (>32); POTASSIUM SERUM 4.1 MEQ/L (3.5-5.1); TOTAL PROTEIN 5.5 GM/DL (6.4-8.2)
[2016-03-13] MEDS: SLF 3 ML SYR IV SCH ×3 (06:10→20:05)
[2016-03-13] MEDS ORDERED: FUROSEMIDE 20 MG/2 ML VIAL (J1940) IV ONE (07:00)
[2016-03-13] MEDS: FERROUS SULFATE 325MG TAB PO SCH (08:08)
[2016-03-13] MEDS: BISOPROLOL FUM 2.5 MG PER 1/2TAB PO SCH ×2 (08:08→20:06)
[2016-03-13] MEDS: DOCUSATE SODIUM 100 MG CAP PO SCH ×2 (08:08→20:06)
[2016-03-13] MEDS: PANTOPRAZOLE 40MG TAB (PROTONIX) PO SCH (08:08)
--- NOTE | 2016-03-13 08:50 | ECGEPIP ---
Stationary ECG Study [facility] Test Date: 2016-03-11 Pat Name: TAMARA CHRISTIANSON Department: Room: [place] [address] Gender: F Director Of Teenage Activities: : 1925 Requested By: Austin Lynn Order Number: [id number] Reading MD: Nehemiah Xiong Measurements Intervals [place] Rate: 62 P: CT: 0 QRS: 15 QRSD: 101 T: -71 QT: 421 QTc: 430 Interpretive Statements Atrial fibrillation with controlled ventricular response. Some paced complexes; one Maribel beat seen Nonspecific ST-T wave abnormalities--consider digoxin effect Compared to prior tracing of 03/11/2016, paced complexes are now seen Electronically Signed On 03-13-2016 8:49:34 EST by Nehemiah Xiong
--- NOTE | 2016-03-13 11:33 | IPNPDOC ---
Assessment/Plan Date Seen The patient was seen on 03/13/16. Problems Problems: (1) Diastolic CHF Status: Chronic Response to Treatment: Improving Problem Specific Plan: Consult Specialist Problem Text: Echocardiogram done by Dr. Maldonado 08/09/2015 showed normal left ventricular systolic function, severe biatrial enlargement, aortic sclerosis without stenosis and mild insufficiency, high CVP, and moderate pulmonary hypertension. 03/13/16 mild decompensation-Antecol increased furosemide (2) A-fib Status: Chronic Problem Text: S/p Pacemaker. On Zebeta bid. Continue Warfarin today. INR 1.67 (3) Acute kidney failure Status: Acute Problem Specific Plan: Repeat Labs Problem Text: improved MARKO on CKD 3/4 (baseline cr 1.6) c diuresis 03/13/16 cr 1.8, K 4.1 (4) Anemia Status: Chronic Problem Text: 2 ACD/CKD at baseline (5) HTN (hypertension) Status: Acute Problem Text: well controlled. ON Zebeta (6) Valvular heart disease Status: Acute (7) Pulmonary HTN Status: Acute Problem Text: Secondary to valvular heart disease (8) DM2 (diabetes mellitus, type 2) Status: Chronic Problem Text: Last A1c 8.4. Not currently on medications. -Sliding scale insulin (9) CKD (chronic kidney disease), stage III Status: Chronic Problem Text: as per MARKO (10) Mitral valve disease Status: Acute Problem Text: Recommending repair as outpatient. 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 Events since last encounter Doing well. getting OOB. tolerating meals. Dr. Varma in to see patient. Recommends Mitral valve repair in the future. Follows with Dr. Ewing for cardiology. Constitutional: Denies: Chills, Fever, Malaise, Night Sweats, Weakness Skin: Denies: Breakdown, Lesions, Rash Pulmonary: Denies: Cough, Dyspnea Cardiovascular: Denies: Chest Pain, Lt Headedness, Orthopnea, Palpitations, Paroxysmal Noc. Dyspnea Gastrointestinal: Denies: Abdominal Pain, Diarrhea, Nausea, Vomiting Genitourinary: Denies: Dysuria, Frequency, Incontinence, Retention Psych: Reports: Mood Normal, Denies: Depression, Memory Issues Objective Physical Examination General Exam: Positive: Alert, No Acute Distress Eye Exam: Positive: Conjunctiva & lids normal, EOMI, PERRLA, Negative: Sclera icteric Neck Exam: Positive: Supple, Negative: JVD, thyromegaly Chest Exam: Positive: Clear to auscultation, Normal air movement Heart Exam: Positive: Murmurs (blowing VIDYA), Rate Normal Abdomen Exam: Positive: Normal bowel sounds, Soft, Negative: Hepatospenomegaly, Tenderness Extremity Exam: Positive: Edema (1+ RLE trace pretibial LLE) Skin Exam: Positive: Nl turgor and temperature, Negative: Breakdown, Rash Vital Signs/I&O Vital Signs Date Time Temp Pulse Resp B/P Pulse Ox O2 Delivery O2 Flow Rate FiO2 03/13/16 08:08 65 104/56 03/13/16 08:00 97.3 18 96 Room Air 03/11/16 17:48 2.0 I&O- Last 24 Hours up to 6 AM 03/13/16 06:00 Intake Total 1370 ml Output Total 750 ml Balance 620 ml Laboratory Data Labs 24H Laboratory Tests 2 03/13/16 04:10: Blood Urea Nitrogen 57H, Creatinine 1.79H, Sodium Level 140, Potassium Level 4.1 , Chloride Level 106, Carbon Dioxide Level 24, Calcium Level 8.0L, Aspartate Amino Transf (AST/SGOT) 126H, Alanine Aminotransferase (ALT/SGPT) 128H, Alkaline Phosphatase 96, Total Bilirubin 0.7#, Total Protein 5.5L, Albumin 2.7L , Albumin/Globulin Ratio 0.96L, Anion Gap 10, Digoxin Level 1.0, Glomerular Filtration Rate 28.4L, Prothromb Time International Ratio 1.67, Prothrombin Time 19.8H CBC/BMP Laboratory Tests 03/13/16 04:10 Calcium Level 8.0 L, Aspartate Amino Transf (AST/SGOT) 126 H, Alanine Aminotransferase (ALT/SGPT) 128 H, Alkaline Phosphatase 96, Total Bilirubin 0.7 #, Total Protein 5.5 L, Albumin 2.7 L, Red Blood Count 3.22 L, Mean Corpuscular Volume 99.5 H, Mean Corpuscular Hemoglobin 32.9, Mean Corpuscular Hemoglobin Concent 33.1, Red Cell Distribution Width 14.2 Microbiology Microbiology 03/10/16 MRSA Screen - Final, Complete Arlette AllenP Mar 13, 2016 11:33 Ian Roman M.D. Mar 13, 2016 13:38 Arlette Allen [facility] Mar 13, 2016 11:33
--- NOTE | 2016-03-13 12:07 | IPN ---
DATE OF SERVICE: 03/13/2016 TIME OF SERVICE: 11:[address] Varma providing weekend cardiology coverage for Dr. Ewing. SUBJECTIVE: Patient reports absence of any dyspnea at rest or with low levels of activity in her room. No palpitations. No orthopnea or paroxysmal nocturnal dyspnea (PND). No chest pain or chest discomfort. Overall, she is feeling well and has no voiced complaints. PHYSICAL EXAMINATION: Pleasant, , elderly woman of mild obesity. Height 60 inches, weight 71.9 kg, body mass index (BMI) 31.0. Temperature 97.3, pulse 65 (irregularly irregular), respiratory rate 18, blood pressure 104/56, oxygen saturation 96% on room air. Input/Output for the 24 hours of 03/12/2016 showed her to be net fluid positive 910 mL. Jugular venous pulsations were at 5 cm with CV-waves. First and second heart sounds were variable in intensity. Accentuated P2 component of the second heart sound. No S3 appreciated. Grade 3 pansystolic murmur maximum at the apex. Grade 1 systolic ejection murmur right second interspace. No diastolic murmurs could be appreciated. Respiratory expansion effort was good. No crackles or wheezes. Abdomen was soft, nontender with normal bowel sounds. Two millimeters pitting edema present at mid and distal tibia level bilaterally. LABORATORY WORK: 03/13/2016: PT/INR 1.67. Sodium 140, potassium 4.1, chloride 106, CO2 24, BUN 57, creatinine 1.79, estimated GFR 28.4, glucose 197. AST elevated at 126, ALT elevated at 128, total protein 5.5, albumin 2.7. Hemoglobin 10.6, hematocrit 32.0, platelets 190. ASSESSMENT AND PLAN: 1. Diastolic heart failure (acute on chronic). This patient's diastolic heart failure is secondary to chronic, severe mitral regurgitation. It may have some contribution from systemic hypertension and advanced age. At this time, she appears to be mildly decompensated. I shall increase her furosemide to 20 mg twice a day. Her blood pressure is too low for vasodilator therapy at this time. Continue bisoprolol, which is being used for heart rate control of atrial fibrillation. 2. Chronic atrial fibrillation. Heart rate presently controlled. Status post single chamber pacemaker in situ. She is maintained on warfarin and is subtherapeutic at this time. She is also on bisoprolol for heart rate control of rapid ventricular response. Continue bisoprolol. Warfarin will be restarted at 4 mg daily. 3. Severe pulmonary hypertension. Severe pulmonary hypertension is secondary. It is likely with a large degree of contribution from chronic, severe mitral regurgitation. She has assisted severe tricuspid regurgitation. Stable. 4. Advanced second degree atrioventricular (AV) block (high-grade AV block). Patient is status post single chamber pacemaker in situ. She has a [employer] pacemaker. 5. Mitral valve prolapse with flail mitral valve and associated chronic severe mitral regurgitation. Mitral valve repair via minimally invasive surgery was discussed with the patient. She tells me that she has had this conversation regarding mitral valve surgery recently with Dr. Boo and Dr. Ewing. Patient tells me that she is still giving it some consideration, but at this time is leaning towards not having cardiac surgery. Patient was encouraged to continue to think about having mitral valve repair. If she goes through mitral valve repair, she will also need concomitant tricuspid valve repair. Her blood pressure is too low for vasodilator therapy. 6. Systemic hypertension. At present, she is on bisoprolol. Blood pressure is acceptable, but at times is getting close to 100. Continue bisoprolol. Other issues that this patient has that were not addressed by me include chronic kidney disease, superimposed acute kidney injury this hospitalization, mild-moderate aortic regurgitation, type 2 diabetes.
[2016-03-13] MEDS ORDERED: WARFARIN SOD 4 MG TAB PO SCH (17:00)
[2016-03-14] VITALS: BP 107/55
[2016-03-14 04:00] VITALS: BP 107/58
[2016-03-14] MEDS: SLF 3 ML SYR IV SCH (04:01)
[2016-03-14 04:49] LABS: MEAN CORPUSCULAR HGB CONC 31.7 g/dl (32.0-36.5); MEAN CORPUSCULAR VOLUME 104.3 fl (80.0-96.0); RED CELL DISTRIBUTION WIDTH 15.7 % (11.5-14.5); WHITE BLOOD COUNT 5.9 K/mm3 (4.0-10.0)
[2016-03-14 04:53] LABS: INR 1.99
[2016-03-14 05:21] LABS: ALBUMIN 2.8 GM/DL (3.2-5.2); ALBUMIN/GLOBULIN RATIO 0.93 (1.00-1.93); BILIRUBIN,TOTAL 0.8 MG/DL (0.2-1.0); CALCIUM LEVEL 8.3 MG/DL (8.8-10.2); CREATININE FOR GFR 1.56 MG/DL (0.55-1.02); DIGOXIN LEVEL 0.8 NG/ML (0.5-2.0); GLOMERULAR FILTRATION RATE 33.3 (>32); POTASSIUM SERUM 3.9 MEQ/L (3.5-5.1); TOTAL PROTEIN 5.8 GM/DL (6.4-8.2)
[2016-03-14 08:00] VITALS: BP 113/60
[2016-03-14] MEDS ORDERED: FUROSEMIDE 20 MG TAB PO SCH (09:00)
[2016-03-14] MEDS: FERROUS SULFATE 325MG TAB PO SCH (09:27)
[2016-03-14] MEDS: DOCUSATE SODIUM 100 MG CAP PO SCH (09:27)
[2016-03-14] MEDS: PANTOPRAZOLE 40MG TAB (PROTONIX) PO SCH (09:27)
[2016-03-14] MEDS: BISOPROLOL FUM 2.5 MG PER 1/2TAB PO SCH (09:27)
[2016-03-14] MEDS ORDERED: FURO20TA2 PO (11:46)
--- NOTE | 2016-03-14 15:15 | DSES ---
DATE OF ADMISSION: 03/10/2016 DATE OF DISCHARGE: 03/14/2016 ATTENDING PHYSICIAN: Ian Roman MD PRIMARY CARE PROVIDER: Bob Reyes MD HISTORY OF PRESENT ILLNESS: This is a patient who patient who presented to her primary care provider's office for complaints of shortness of breath on exertion, shown acute kidney injury (MARKO) and concern for heart failure. She was subsequently admitted to the ICU for treatment and evaluation. On presentation in the ICU, the patient had an elevated digoxin level drawn three days prior, just 1.9. Repeat was 1.8. The patient had been on her bisoprolol, was shown to be significantly bradycardic on presentation. Creatinine on admission was 1.84 in patient with a baseline creatinine of 1.2 and history chronic kidney disease (CKD), stage III. Also an elevated BNP was noted at 1999, however, the patient was not in appearance of fluid volume overload at that time. Cardiology was consulted. The patient's routine internet cafe manager, Dr. Ewing evaluated the patient. Digoxin was subsequently held and it was advised the patient proceed with pacemaker. On 03/11 the patient received 2 units of fresh frozen plasma and proceeded with pacemaker implantation by Dr. Lynn. She tolerated the procedure well. Postoperatively, the patient has been progressing well. She has been without chest pain, headache, blurred vision, dizziness, heart palpitations, shortness of breath, dyspnea with exertion or increased fluid volume overload. The patient's primary internet cafe manager evaluated patient on 03/12. It was discussed that the patient has a significant flail mitral valve leaflet, severe mitral regurgitation. It had been recommended that patient with proceed with a mitral valve replacement as well as perhaps a tricuspid valve replacement. The patient would like to consider this and will decide as an outpatient with her internet cafe manager. This was also discussed with Dr. Varma yesterday who is the covering internet cafe manager over the weekend. He feels the patient is safe and appropriate to be discharged home and consider the repair as an outpatient. PHYSICAL EXAMINATION: The patient's INR is 1.99. Hemoglobin and hematocrit 10 and 35. White blood cell count of 5000. CMP with sodium of 140, potassium 3.9, BUN 47, creatinine 1.56. AST 74, ALT 80. VITAL SIGNS: Show blood pressure of 113/60, respiratory rate of 20, oxygen saturation 96% on room air. Temperature 97.5, heart rate of 65. HEENT: Neck is supple without lymphadenopathy or jugular venous distention (JVD). CARDIOVASCULAR: Heart rate and rhythm are regular with significant blowing systolic ejection murmur. PULMONARY: Lungs are clear to auscultation bilaterally. ABDOMEN: Soft and nontender with positive bowel sounds times all four quadrants. EXTREMITIES: Bilateral lower extremities show trace edema consistent with her venous insufficiency to both of her legs. NEUROLOGICAL: She is alert and oriented times three. No resting tremors appreciated. PSYCHIATRIC: Affect is appropriate. Conversations congruent and patient maintains eye contact. ASSESSMENT: 1. Sick sinus syndrome in an 89-year-old female. 2. Congestive heart failure. 3. Acute kidney injury. 4. History of atrial fibrillation. 5. Hypertension. 6. Hyperlipidemia. 7. Diabetes. 8. Flail mitral valve with severe regurgitation. 9. Chronic kidney disease. PLAN: The patient will be discharged home. Diet is 2 gram sodium. Activity as tolerated. She will followup with primary care provider within the next 5 to 7 days. She will followup with cardiology in the next 5 to 7 days for discussion on potential mitral valve repair. MEDICATIONS: Are as follows: NEW PRESCRIPTIONS INCLUDE: - furosemide 20 mg one daily STOPPED MEDICATIONS: Include: - digoxin - furosemide 40 mg twice a day CONTINUED MEDICATIONS: Include: - acetaminophen 650 mg by mouth every 4 hours as needed - bisoprolol fumarate 2.5 mg by mouth twice a day - Colace 100 mg by mouth twice a day - ferrous sulfate 325 mg by mouth daily - multivitamin one daily - Protonix 40 mg one daily - potassium chloride 20 mEq daily - warfarin sodium 6 mg by mouth twice per week and 4 mg five times per week. Her INR goal is be between 2 and 3 and that is per cardiology notes. The patient is discharged in satisfactory condition with no further questions at the time of discharge.
== END 2016-03-14 13:42 | disposition home or self-care (01) | DRG 242 ==
LOC: M ICU 10:51
PROVIDERS: ADMIT Family Medicine; ATTEND Family Medicine
PROC: 02HK3JZ Insertion of Pacemaker Lead into Right Ventricle, Percutaneous Approach (ICD-10-PCS; 2016-03-11)
PROC: 30233K1 Transfusion of Nonautologous Frozen Plasma into Peripheral Vein, Percutaneous Approach (ICD-10-PCS; 2016-03-11)
PROC: 0JH604Z Insertion of Pacemaker, Single Chamber into Chest Subcutaneous Tissue and Fascia, Open Approach (ICD-10-PCS; principal; 2016-03-11 07:55)
DX: I49.5 Sick sinus syndrome (principal); I50.33 Acute on chronic diastolic (congestive) heart failure; N17.9 Acute kidney failure, unspecified; I13.0 Hypertensive heart and chronic kidney disease with heart failure and stage 1 through stage 4 chronic kidney disease, or unspecified chronic kidney disease; N18.4 Chronic kidney disease, stage 4 (severe); T46.0X5A Adverse effect of cardiac-stimulant glycosides and drugs of similar action, initial encounter; I48.91 Unspecified atrial fibrillation; E78.5 Hyperlipidemia, unspecified; E11.9 Type 2 diabetes mellitus without complications; I44.0 Atrioventricular block, first degree; I34.1 Nonrheumatic mitral (valve) prolapse; I36.1 Nonrheumatic tricuspid (valve) insufficiency; I35.0 Nonrheumatic aortic (valve) stenosis; D50.9 Iron deficiency anemia, unspecified; E87.5 Hyperkalemia; Z79.01 Long term (current) use of anticoagulants; Z79.899 Other long term (current) drug therapy; Z86.718 Personal history of other venous thrombosis and embolism; Z85.3 Personal history of malignant neoplasm of breast; Z92.3 Personal history of irradiation; Z90.710 Acquired absence of both cervix and uterus; Z85.038 Personal history of other malignant neoplasm of large intestine; Z90.49 Acquired absence of other specified parts of digestive tract; Z96.651 Presence of right artificial knee joint

== ENCOUNTER → 2016-03-29 | Outpatient (REF) | payer MEDICARE ==
[~2016-03-29] MED LIST changes: +ACET-654 PO; +DIGO0.12 PO; +FURO20TA2 PO; +WARF-20 PO; +WARF-60 PO
[2016-03-29 12:59] LABS: CALCIUM LEVEL 8.4 MG/DL (8.8-10.2); CREATININE FOR GFR 1.72 MG/DL (0.55-1.02); GLOMERULAR FILTRATION RATE 29.7 (>32); POTASSIUM SERUM 4.6 MEQ/L (3.5-5.1)
[2016-03-29 13:18] LABS: EOS # 0.2 K/mm3 (0.0-0.50); EOS % 3.5 % (0.0-3.0); LARGE UNSTAINED CELL # 0.1 K/mm3 (0.0-0.4); LARGE UNSTAINED CELL % 2.5 % (0.0-4.0); LYMPH % 20.1 % (24.0-44.0); MEAN CORPUSCULAR HEMOGLOBIN 32.1 pg (27.0-33.0); MEAN CORPUSCULAR HGB CONC 30.5 g/dl (32.0-36.5); MEAN CORPUSCULAR VOLUME 105.2 fl (80.0-96.0); MONO # 0.3 K/mm3 (0.0-0.8); MONO % 7.4 % (0.0-5.0); NEUTROPHILS # 2.9 K/mm3 (1.8-7.7); NEUTROPHILS % 65.6 % (36.0-66.0); PLATELET COUNT, AUTOMATED 215 k/mm3 (150-450); RED CELL DISTRIBUTION WIDTH 16.1 % (11.5-14.5); WHITE BLOOD COUNT 4.5 K/mm3 (4.0-10.0)
== END | disposition home or self-care (01) ==
LOC: M LABDRWAD 12:19
PROVIDERS: ATTEND Internal Medicine Cardiovascular Disease
DX: E03.9 Hypothyroidism, unspecified (principal)

== ENCOUNTER → 2016-04-30 | Outpatient (REF) | payer MEDICARE ==
[2016-04-30 13:28] LABS: MEAN CORPUSCULAR HEMOGLOBIN 32.8 pg (27.0-33.0); MEAN CORPUSCULAR HGB CONC 30.9 g/dl (32.0-36.5); MEAN CORPUSCULAR VOLUME 106.1 fl (80.0-96.0); RED CELL DISTRIBUTION WIDTH 14.6 % (11.5-14.5); WHITE BLOOD COUNT 4.2 K/mm3 (4.0-10.0)
[2016-04-30 13:38] LABS: INR 2.89
[2016-04-30 13:51] LABS: ALBUMIN 3.6 GM/DL (3.2-5.2); ALBUMIN/GLOBULIN RATIO 1.13 (1.00-1.93); BILIRUBIN,TOTAL 1.5 MG/DL (0.2-1.0); CALCIUM LEVEL 8.8 MG/DL (8.8-10.2); CREATININE FOR GFR 2.08 MG/DL (0.55-1.02); GLOMERULAR FILTRATION RATE 23.9 (>32); POTASSIUM SERUM 4.3 MEQ/L (3.5-5.1); TOTAL PROTEIN 6.8 GM/DL (6.4-8.2)
== END ==
LOC: M SFHCADAM 09:23
PROVIDERS: ATTEND Physician Assistant
DX: I50.32 Chronic diastolic (congestive) heart failure (principal); D50.9 Iron deficiency anemia, unspecified; N18.9 Chronic kidney disease, unspecified; I48.91 Unspecified atrial fibrillation

== ENCOUNTER → 2016-05-07 | Outpatient (CLI) | payer MEDICARE ==
[~2016-05-07] MED LIST changes: -COLA100C PO; +COLA100C3 PO
--- NOTE | 2016-05-07 17:24 | REP ---
Duplex extremity venous ultrasound: Right lower extremity. History: Right lower extremity swelling. Findings: The deep veins are anechoic and fully compressible from the groin to the popliteal fossa in the right lower extremity. Color flow imaging is homogeneous. Spectral Doppler interrogation demonstrates intact respiratory variation in flow and normal manual augmentation of flow. There is no evidence of deep vein thrombosis. Impression: Negative right lower extremity duplex venous ultrasound. No evidence of deep vein thrombosis. Signed by Malcolm Thomason MD 05/07/2016 05:14 P
== END ==
LOC: M RAD 16:50
PROVIDERS: ATTEND Physician Assistant
DX: M79.89 Other specified soft tissue disorders (principal)
CPT/HCPCS: 85610; 93971; G0463

== ENCOUNTER → 2016-05-11 | Outpatient (REF) | payer MEDICARE ==
[2016-05-11 19:33] LABS: CALCIUM LEVEL 8.8 MG/DL (8.8-10.2); CREATININE FOR GFR 1.91 MG/DL (0.55-1.02); GLOMERULAR FILTRATION RATE 26.3 (>32); POTASSIUM SERUM 4.1 MEQ/L (3.5-5.1)
== END ==
LOC: M SFHCADAM 14:09
PROVIDERS: ATTEND Physician Assistant
DX: I34.0 Nonrheumatic mitral (valve) insufficiency (principal); I50.31 Acute diastolic (congestive) heart failure
CPT/HCPCS: 80048; G0463

== ENCOUNTER → 2016-05-21 | Outpatient (REF) | payer MEDICARE ==
[~2016-05-21] MED LIST changes: +COLA100C PO; -COLA100C3 PO
[2016-05-21 13:09] LABS: INR 1.08
== END ==
LOC: M LABDRWAD 12:19
PROVIDERS: ATTEND Physician Assistant
DX: I48.91 Unspecified atrial fibrillation (principal)

== ENCOUNTER → 2016-06-03 | Outpatient (REF) | payer MEDICARE ==
[~2016-06-03] MED LIST changes: -COLA100C PO; +COLA100C3 PO
[2016-06-03 19:40] LABS: MEAN CORPUSCULAR HEMOGLOBIN 32.6 pg (27.0-33.0); MEAN CORPUSCULAR HGB CONC 31.9 g/dl (32.0-36.5); MEAN CORPUSCULAR VOLUME 102.1 fl (80.0-96.0); RED CELL DISTRIBUTION WIDTH 13.2 % (11.5-14.5); WHITE BLOOD COUNT 3.4 K/mm3 (4.0-10.0)
[2016-06-03 20:14] LABS: ALBUMIN 3.3 GM/DL (3.2-5.2); ALBUMIN/GLOBULIN RATIO 0.94 (1.00-1.93); BILIRUBIN,TOTAL 0.7 MG/DL (0.2-1.0); CALCIUM LEVEL 8.8 MG/DL (8.8-10.2); CREATININE FOR GFR 1.2 MG/DL (0.55-1.02); POTASSIUM SERUM 4.7 MEQ/L (3.5-5.1); TOTAL PROTEIN 6.8 GM/DL (6.4-8.2)
== END ==
LOC: M SFHCADAM 13:38
PROVIDERS: ATTEND Physician Assistant
DX: I48.91 Unspecified atrial fibrillation (principal); N18.3 Chronic kidney disease, stage 3 (moderate); I50.31 Acute diastolic (congestive) heart failure